=== PATIENT | male | born 1930 | race Caucasian/White ===

== ENCOUNTER → 2016-10-18 | Outpatient (REF) | payer MEDICARE ==
[2016-10-18 08:49] LABS: MEAN CORPUSCULAR HEMOGLOBIN 29.3 PG (26.0-34.0); MEAN CORPUSCULAR HGB CONC 32.8 g/dL (31.0-37.0); MEAN CORPUSCULAR VOLUME 89 FL (80-100); MEAN PLATELET VOLUME 10.4 FL (6.0-9.5); PLATELET COUNT 178 10^3uL (150-450); WHITE BLOOD COUNT 4.98 10^3uL (4.0-11.0)
[2016-10-18 08:55] LABS: BAND NEUTROPHILS % 0 % (0-6); EOSINOPHILS % 3 % (0-4); LYMPHOCYTES # 1.8 #; MONOCYTES # 0.2 #; MONOCYTES % 6 % (3-11); RBC MORPH NORMAL (NORMAL); SEGMENTED NEUTROPHILS % 54 % (51-67); TOTAL CELLS COUNTED 100
[2016-10-18 09:15] LABS: ANION GAP 15.8 MEQ/L (3-15); CALCULATED IONIZED CALCIUM 4.2 mg/dL (3.8-4.6)
== END ==
LOC: LAB 08:14
PROVIDERS: ATTEND Internal Medicine
DX: I25.10 Atherosclerotic heart disease of native coronary artery without angina pectoris (principal); I10 Essential (primary) hypertension; I73.9 Peripheral vascular disease, unspecified; E11.43 Type 2 diabetes mellitus with diabetic autonomic (poly)neuropathy; D51.3 Other dietary vitamin B12 deficiency anemia; Z87.891 Personal history of nicotine dependence
CPT/HCPCS: 80053; 80061; 83036; 84436; 84443; 85007; 85027

== ENCOUNTER → 2016-10-19 | Outpatient (REF) | payer MEDICARE ==
[~2016-10-19] MED LIST: AC325T PO; ACET325T38 PO; ACYC800T PO; AMIT50TA3 PO; AML5T PO; AMLO10TA4 PO; AMLO10TA82 PO; AMT50T PO; ASPI-586 PO; ATN50T PO; ATOR40TA2 PO; CHOL10002 PO; CYAN10007 PO; CYAN1TAB26 PO; ENXP30I.3 SC; FOSI40TA2 PO; FRSM40T PO; FURO20TA4 PO; GBPN100C PO; HC1C30 EXT; HYDR-3754 PO; INDA1.25 PO; INSASP1U SQ; INSU100I14 SQ; INSU100V2 SQ; INSU100V5 SC; INSU100V5 SQ; K-ROCEP1PB IV; LISI-597 PO; LORA10TA7 PO; LTN005OP2 OU; MAG355OR16 PO; MAGN400O7 PO; MELA300T PO; METO100T2 PO; METO25TA60 PO; METO50TA PO; MIRALAX 17 GM P17 GM PO; MULT-593 PO; NAPR220T66; NF-DOR2% OU; NF-LISIN40 PO; NITR0.4T; NTR.4SL SL; OMEG1CAP24 PO; OMG1KC PO; POTA10CA2 PO; ROSU20TA PO; SIMV40TA2 PO; SULF-228 PO; TML5OP2.5 OS; TML5OP2.5 OU; TR1C15 TOP
[2016-10-19 09:42] LABS: BILIRUBIN,URINE Negative (Negative); CLARITY,URINE Clear; COLOR,URINE Yellow; GLUCOSE, URINE (UA) Negative (Negative); LEUKOCYTE ESTERASE, URINE Negative (Negative); UROBILINOGEN,URINE 0.2 mg/dL (0.2-1.0)
[2016-10-19 09:45] LABS: URINE CENTRIFUGED VOLUME 12 mL
[2016-10-19 09:54] LABS: RBC,URINE None Seen /HPF
== END ==
LOC: LAB 09:24
PROVIDERS: ATTEND Internal Medicine
DX: E11.9 Type 2 diabetes mellitus without complications (principal)
CPT/HCPCS: 81003; 81015; 82043